=== PATIENT | female | born 1970 | race Hispanic/Latino ===

== ENCOUNTER 2022-09-15 15:01 | Outpatient (CLI) | payer BC | END 2022-09-15 15:02 | disposition home or self-care (01) | LOC: CSHMAMMO 15:01 | PROVIDERS: ATTEND Nurse Practitioner Family | DX: Z12.31 Encounter for screening mammogram for malignant neoplasm of breast (principal) | CPT/HCPCS: 77063; 77067 ==

== ENCOUNTER 2024-08-15 14:45 | Outpatient (CLI) | payer OTHER | END 2024-08-15 14:46 | disposition home or self-care (01) | LOC: CSHMRI 14:45 | PROVIDERS: ATTEND Nurse Practitioner Family | DX: S56.911A Strain of unspecified muscles, fascia and tendons at forearm level, right arm, initial encounter (principal); S63.591A Other specified sprain of right wrist, initial encounter; M67.431 Ganglion, right wrist; Y99.0 Civilian activity done for income or pay ==

== ENCOUNTER 2024-09-19 12:40 | Outpatient (CLI) | payer BC | END 2024-09-19 12:41 | disposition home or self-care (01) | LOC: CSHMAMMO 12:40 | PROVIDERS: ATTEND Nurse Practitioner Family | DX: Z12.31 Encounter for screening mammogram for malignant neoplasm of breast (principal) | CPT/HCPCS: 77063; 77067 ==